=== PATIENT | male | born 1950 | race Caucasian/White ===

== ENCOUNTER 2016-05-14 08:38 | Emergency (ER) | payer MEDICARE, MEDICAID ==
[~2016-05-14] VITALS: Ht 160 cm; Wt 97.7 kg
[~2016-05-14 08:38] MED LIST: ACET-837 PO; ASPI81TA3 PO; ATOR80TA PO; CLOP75TA28 PO; GOODY S HEADACHE PO; ISOS60TA2 PO; LISI-610 PO; METO25TA6 PO; NITR0.4T SL; OMEP20TA86 PO; PANT40TA2 PO; RANO500T3 PO
--- NOTE | 2016-05-14 08:43 | ED.REPORT ---
HPI-General Illness Date of Service May 14, 2016 ED Provider: Rufina Arora MD Nursing Notes Stated Complaint: NOSE BLEED/ON BLOOD THINNERS Allergies: Coded Allergies: oxycodone (Verified Allergy, Severe, 11/29/13) propoxyphene (Verified Allergy, Severe, 11/29/13) Scheduled Aspirin Chew (Aspirin Chew) 81 Mg Tablet 81 MG PO DAILY Atorvastatin (Lipitor) 80 Mg Tablet 80 MG PO DAILY Clopidogrel (Clopidogrel) 75 Mg Tablet 75 MG PO DAILY Gabapentin (Gabapentin) 300 Mg Capsule 300 MG PO TID 1 at bedtime until the daytime sleepiness goes away. increase by 1 tablet per day. Max dose: 1200 mg 3 times a day Isosorbide MN ER (Isosorbide MN ER) 60 Mg Tablet 60 MG PO 0730 Lisinopril (Zestril) 10 Mg Tablet 10 MG PO BID Metoprolol Tartrate (Metoprolol Tartrate) 25 Mg Tablet 12.5 MG PO BID Omeprazole (Omeprazole) 20 Mg Tablet.dr 80 MG PO DAILY Pantoprazole DR (Protonix) 40 Mg Tablet 40 MG PO DAILY Ranolazine ER (Ranexa) 500 Mg Tablet.er 500 MG PO BID Scheduled PRN ([goody's headache ]) 3-5 PACKET PO DAILY PRN PRN For Headache Acetaminophen/Codeine 300-60mg (Tylenol/Codeine #4) 1 Each Tablet 2 TABLET PO BID PRN PRN Pain Nitroglycerin SL (Nitrostat) 0.4 Mg Tab.subl 0.4 MG SL Q5MIN PRN PRN chest pain General Time Seen by MD: 08:40 Past Medical History Past Medical History [place] x4 Cardiac Stent x4 Anxiety Disorder Sarcoidosis sleep apnea Reports: Coronary artery disease, GERD, Hyperlipidemia, Hypertension Past Surgical History Cardiac Catheterization 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 Smoking History Never Smoker Social History Alcohol Use: Denies alcohol use Drug Use: Denies drug use Other Social History: Good social support, , Local resident Ambulatory Status Independent Physical Exam Vital Signs Vital Signs Date Time Temp Pulse Resp B/P Pulse Ox O2 Delivery O2 Flow Rate FiO2 05/14/16 08:49 37.0 78 15 179/88 97 Room Air Interpretation & Diagnostics Lab Results Interpretation Result Diagram: 05/14/16 1033 Test 05/14/16 10:33 White Blood Count 9.7th/mm3 (3.8-10.1) Red Blood Count 4.85mil/mm3 (4.40-5.80) Hemoglobin 13.4g/dL (13.8-17.2) Hematocrit 41.8% (41.0-50.0) Mean Corpuscular Volume 86.2fL (81-100) Mean Corpuscular Hemoglobin 27.6pg (27.0-35.0) Mean Corpuscular Hemoglobin Concent 32.1% (32.0-37.0) Red Cell Distribution Width 14.0% (12.3-15.4) Platelet Count 338bil/L (150-400) Neutrophils (%) (Auto) 71.9% (40-74) Lymphocytes (%) (Auto) 14.4% (14-46) Monocytes (%) (Auto) 9.1% (4-12) Eosinophils (%) (Auto) 3.5% (0-5) Basophils (%) (Auto) 0.3% (0-3) Discharge & Departure Referrals: Hyacinth Fletcher MD (PCP) Rufina Arora MD May 14, 2016 08:43 Maribel Duncan May 14, 2016 11:35
[2016-05-14 08:49] VITALS: BP 179/88; RESP 15; O2SAT 97
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
[2016-05-14] MEDS ORDERED: HYDROmorphone 1 mg/mL Inj IM ONE ×2 (10:35→11:35)
[2016-05-14 10:42] LABS: BASOPHILS % (AUTO) 0.3 % (0-3); EOSINOPHILS % (AUTO) 3.5 % (0-5); MONOCYTES % (AUTO) 9.1 % (4-12); Mean Corpuscular Hemoglobin 27.6 pg (27.0-35.0); Mean Corpuscular Volume 86.2 fL (81-100); NEUTROPHILS % (AUTO) 71.9 % (40-74); Platelet Count 338 bil/L (150-400)
[2016-05-14 11:30] VITALS: BP 146/86; PULSE 84; RESP 14; O2SAT 97
[2016-05-14] MEDS ORDERED: GABA-502 PO (11:34)
[2016-05-14 11:54] VITALS: BP 146/86; PULSE 84; RESP 14; O2SAT 97
== END 2016-05-14 11:55 | disposition home or self-care (01) ==
LOC: SED 08:38
DX: R04.0 Epistaxis (principal); I25.10 Atherosclerotic heart disease of native coronary artery without angina pectoris; I10 Essential (primary) hypertension; E78.5 Hyperlipidemia, unspecified; K21.9 Gastro-esophageal reflux disease without esophagitis; Z95.5 Presence of coronary angioplasty implant and graft; Z79.01 Long term (current) use of anticoagulants; Z87.891 Personal history of nicotine dependence; Z98.890 Other specified postprocedural states; Z88.5 Allergy status to narcotic agent; Z88.8 Allergy status to other drugs, medicaments and biological substances; Z79.82 Long term (current) use of aspirin
CPT/HCPCS: 30901; 36415; 85025; 99284; J1170

== ENCOUNTER 2016-11-12 19:16 | Inpatient (IN) | payer MEDICARE, MEDICAID ==
[~2016-11-12] VITALS: Ht 160 cm; Wt 90.1 kg
[~2016-11-12 19:16] MED LIST changes: +GABA-502 PO
[2016-11-12 19:31] VITALS: BP 149/86; PULSE 77; RESP 16; O2SAT 99
[2016-11-12 20:35] LABS: BASOPHILS % (AUTO) 0.3 % (0-3); EOSINOPHILS % (AUTO) 1.9 % (0-5); MONOCYTES % (AUTO) 7.8 % (4-12); Mean Corpuscular Hemoglobin 27.2 pg (27.0-35.0); Mean Corpuscular Volume 85.7 fL (81-100); NEUTROPHILS % (AUTO) 58.6 % (40-74); Platelet Count 323 bil/L (150-400)
[2016-11-12 20:54] LABS: INR 0.95 ratio
[2016-11-12 22:11] VITALS: BP 132/65; PULSE 75; O2SAT 99
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
[2016-11-12] MEDS ORDERED: Pantoprazole Inj 80 MG, Pharmacy To Mix 1 EA in 0.9% Sodium Chloride 80 ML IV ONE ×2 (22:45)
[2016-11-12] MEDS ORDERED: HYDROmorphone 1 mg/mL Inj IVPUSH ONE (22:45)
[2016-11-12] MEDS ORDERED: Pantoprazole 4 mg/mL 10 mL Inj IVPUSH ONE (22:45)
[2016-11-12] MEDS ORDERED: HYDROmorphone 0.5 mg/0.5 mL iSecure Syringe IVPUSH ONE (23:25)
[2016-11-12] MEDS ORDERED: Ondansetron 2 mg/mL 2 mL Inj IVPUSH PRN (23:45)
[2016-11-12] MEDS ORDERED: Polyethylene Glycol (PEG) 17 Gm Powder PO PRN (23:45)
[2016-11-12] MEDS ORDERED: Alum-Mag Hydrox-Simeth 30 mL Suspension PO PRN (23:45)
--- NOTE | 2016-11-12 23:52 | PCM.HPMED ---
Subjective Date of Service Nov 12, 2016 Primary Provider: Admitting Physician: Primary Care Physician: Hyacinth Fletcher MD Attending Physician: Admit Status: From the Emergency Department, Full Admit, Remote Telemetry Chief Complaint: Black stools History of Present Illness: Graham Ruggiero is a 66 year old male with Coronary artery disease, Hypertension and hyperlipidemia presenting to [facility] emergency department complaining of black stool onset 2 days ago. Patient first noticed the black colored stools last Saturday. Associated symptoms include nausea without any vomiting, back and intermittent "gurgling" abdominal pain (which may be associated with a recent groin injury), and intermittent lightheadedness. He denies any hematemesis but states " I can taste the blood". He has taken significant amount of Ibuprofen due to chronic pain issues. He does have GERD but ran out of Protonix and Omeprazole for the last week. He denies any previous history of black stools or internal bleeding. He has cardiac heart disease but no anginal equivalent pain. Case discussed with Dr Tirado, he spoke to Dr Ellis. Vitals stable. Protonix drip started and will be admitted Review of Systems: Pertinent positives as noted in HPI. All other systems were reviewed and are negative Allergies Coded Allergies: oxycodone (Verified Allergy, Severe, 11/29/13) propoxyphene (Verified Allergy, Severe, 11/29/13) Home Medications From [facility], not yet confirmed Graham Ruggiero [id number] 04/23/2016 03:00 PM 03/12 acetaminophen 300 mg-codeine 60 mg tablet take 1 tablet by oral route every 6 hours as needed clopidogrel 75 mg tablet take 1 tablet by oral route every day ibuprofen 200 mg tablet take as needed as directed by physician for pain/ inflammation. isosorbide mononitrate ER 60 mg tablet,extended release 24 hr take 1 tablet by oral route every day in the morning lisinopril 5 mg tablet take 1 tablet by oral route 2 times every day metoprolol tartrate 50 mg tablet take 1 Tablet by oral route 2 times every day with meals Nitrostat 0.[address] 1 tablet by sublingual route at the 1st sign of attack; may repeat every 5 min until relief; if pain persists after 3 tablets in 15 min, prompt medical attention is recommended nortriptyline 25 mg capsule take 1 capsule by oral route 3 times every day omeprazole 20 mg capsule,delayed release take 1 capsule by oral route every day 30 minutes to 1 hour before a meal Protonix 40 mg tablet,delayed release take 1 tablet by oral route 2 times every day rosuvastatin 40 mg tablet take 1 tablet by oral route every day PMH Coronary artery disease Hyperlipidemia Hypertension Chronic fatigue Depression GERD Sarcoid Lung disease Spinal stenosis of lumbar spine . Surgical History Leg surgery Cardiac cath, bare metal stent to proximal right posterolateral lesion Ankle and Knee surgery Family History Father age 60, had Coronary artery disease and Stroke Mother 80, Diabetic Sister has Diabetes Social History Hx Alcohol Use: Yes (rarely once a month maybe I will have a beer) Hx Substance Use: No Hx Tobacco Use: Yes Smoking Status: Former Smoker Living Arrangement: with Family Exam Vital Signs Vital Sign - Last Date Time Temp Pulse Resp B/P Pulse Ox O2 Delivery O2 Flow Rate FiO2 11/12/16 22:11 36.9 75 132/65 99 Room Air 11/12/16 19:31 16 Exam General: Alert, Oriented X3, Cooperative, No acute Distress Eyes: PERRLA, Scleral Anicteric Mouth: Mouth Normal, Mucous Membranes Moist/[place] Neck: Supple, no Thyromegaly, trachea central. Chest & Lungs: Clear to auscultation & percussion, No adventitious breath sounds, no crackles, no wheeze Cardiovascular: Normal S1, Normal S2, No Murmurs/Rubs/Gallops, Regular Rate/ Rhythm, (No JVD, no peripheral edema) Pulses: Radial (present and equal), Dorsalis Pedi (present and equal) Abdomen: Soft, Non-tender, Non-distended, Normoactive bowel tones. Musculoskeletal: Unremarkable. Normal range of motion, no swollen or erythematous joints Extremities: No edema, no cyanosis, no clubbing. Skin: No rashes. Warm and dry, no erythematous areas Neurological: Grossly neurologically intact, Normal Speech, Sensation Intact Lymphatic: Lymph nodes Cervical and Axillary not palpable Lab and Diagnostics Labs Laboratory Tests Test 11/12/16 20:22 11/12/16 22:19 White Blood Count 10.1th/mm3 (3.8-10.1) Red Blood Count 3.57mil/mm3 (4.40-5.80) Hemoglobin 9.7g/dL (13.8-17.2) Hematocrit 30.6% (41.0-50.0) Mean Corpuscular Volume 85.7fL (81-100) Mean Corpuscular Hemoglobin 27.2pg (27.0-35.0) Mean Corpuscular Hemoglobin Concent 31.7% (32.0-37.0) Red Cell Distribution Width 16.0% (12.3-15.4) Platelet Count 323bil/L (150-400) Neutrophils (%) (Auto) 58.6% (40-74) Lymphocytes (%) (Auto) 30.9% (14-46) Monocytes (%) (Auto) 7.8% (4-12) Eosinophils (%) (Auto) 1.9% (0-5) Basophils (%) (Auto) 0.3% (0-3) Prothrombin Time 10.1sec (8.1-12.5) Prothromb Time International Ratio 0.95ratio Sodium Level 140mEq/L (134-144) Potassium Level 4.4mEq/L (3.5-5.2) Chloride Level 102mEq/L (97-108) Carbon Dioxide Level 23mmol/L (18-29) Blood Urea Nitrogen 36mg/dL (8-27) Creatinine 1.05mg/dL (0.76-1.27) Estimat Glomerular Filtration Rate 75mL/min (>59) Glucose Level 121mg/dL (60-99) Calcium Level 9.1mg/dL (8.5-10.1) Total Bilirubin 0.3mg/dL (0.0-1.2) Aspartate Amino Transf (AST/SGOT) 16U/L (0-50) Alanine Aminotransferase (ALT/SGPT) 14U/L (0-44) Alkaline Phosphatase 83U/L (25-160) Total Protein 6.8g/dL (6.4-8.4) Albumin 4.0g/dL (3.4-5.0) Hold Dao Top Tube Received (Received) Hold Urine Received (Received) Result Diagram: 11/12/16202111/12/162021 Assessment & Plan Graham Ruggiero is a 66 year old male with Coronary artery disease, Hypertension and hyperlipidemia presenting to [facility] emergency department complaining of black stool 1. Acute Upper Gastrointestinal bleeding. Present on admission Likely Erosive gastritis. Previous history of GERD but patient ran out of his Protonix and Omeprazole. Patient also taking Ibuprofen for pain and likely the cause of his bleeding. Other causes includes Esophageal varices, Ivy-Anton syndrome or Vascular ectasias are all less likely - nothing by mouth and IV fluids resuscitations - monitor Hgb every 6 hours, transfusion trigger will be symptomatic and Hgb < 8 - Dr Ellis was notified for consultation, possible Upper endoscopy - continue Protonix drip - holding Plavix and NSAIDS (Educated patient concerning NSAIDS and his currently bleeding) 2 Coronary artery disease, Chronic Presumed stable with no recent hospitalization. - holding antiplatelet therapy for now - continue Isosorbide, beta blockers, as need Nitro 3 Hypertension, chronic Presumed stable - continue Losartan, Metoprolol 4 Hyperlipidemia, Chronic - continue Rosuvastatin or equivalent in the hospital - Acetaminophen as needed for mild pain/fever/headache - Bowel regimen as needed - Antiemetic as needed Patient admitted under inpatient status with expected length of stay > 2 midnights for severity of present symptoms, complexities of treatment plan and risk for adverse event . Resuscitation Status: CPR: Attempt Resuscitation Ibrahima Hancock MD Nov 12, 2016 23:52
[2016-11-13] VITALS (12 sets, daily range): BP systolic 117–189; BP diastolic 66–97; PULSE 70–88; RESP 14–20; O2SAT 96–100
[2016-11-13] MEDS: 0.9% Sodium Chloride 1,000 ML IV SCH ×3 (03:27→19:43)
--- NOTE | 2016-11-13 04:29 | NUR ---
Admit Patient admitted to unit at ~0230 from ED with Protonix drip running. Self transferred to bed SBA. Pain increased in back and groin while in ED, subsided while doing admission workup. Patient A & O x3, VSS. Med rec started but not complete as patient did not know all of medications, will call to complete. Patient oriented to room and call ligtht. Patient to be NPO after midnight for Endoscopy on 11/13/16. Will continue to monitor hourly.
[2016-11-13] MEDS ORDERED: LOSA50TA37 PO (09:12)
[2016-11-13] MEDS ORDERED: METO50TA3 PO (09:12)
[2016-11-13] MEDS ORDERED: ROSU40TA20 PO (09:12)
--- NOTE | 2016-11-13 09:45 | NUR ---
MED REC Completed by patient interview and medication containers. Asked to bring meds home with her. Hospitalist informed of updated med rec.
[2016-11-13] MEDS: Pantoprazole Inj 80 MG, Pharmacy To Mix 1 EA in 0.9% Sodium Chloride 80 ML IV SCH ×4 (10:43→23:12)
[2016-11-13] MEDS ORDERED: fentaNYL-PF 50 mCg/mL 2 mL Inj ONE (11:17)
[2016-11-13] MEDS ORDERED: Propofol 10,000 mCg/mL 20 mL Inj ONE (11:17)
[2016-11-13] MEDS ORDERED: HYDROmorphone 0.5 mg/0.5 mL iSecure Syringe IVPUSH PRN (11:40)
--- NOTE | 2016-11-13 15:14 | NUR ---
Social Work: Initial Assessment/Multidisciplinary Rounds D: EMR reviewed. Please see Initial Assessment linked to this note for more information. Pt is a 66 year old male admitted IN for GI Bleed per H&P. Pt's insurance is Medicare and [facility]. PCP is Hyacinth Fletcher MD. Pt discussed in multidisciplinary rounds, pt to receive scope today. GI is consulted. SW met with pt at bedside to conduct initial assessment. Pt was alert and oriented x3. SW explained role and wrote phone number on white board. SW provided [facility] Discharge Planning Checklist and encouraged pt to contact SW for any discharge planning questions. Pt lives at home with spouse [place]. Pt is independent with all ADLs at baseline. Pt uses no DME at baseline. Pt drives. Pt has no HH or SNF history. Pt has no LTC or VA benefits. Pt has no DPOA on file, pt to ask if this has been completed in the past. Pt is likely to d/c home with spouse to transport via POV. SW will continue to follow. A: Pt who is independent at baseline and has the capacity for self-care. P: Pt anticipated to discharge home with spouse to transport via POV. No SW needs identified, no MD orders received at this time. SW will continue to follow for needs until time of discharge. LYNNE Vega Addendum: 11/13/16 at 1518 by FAISAL ESCOBAR SS Amended: Links added.
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
--- NOTE | 2016-11-13 16:31 | NUR ---
TRANSFER OFF FLOOR Patient was saline locked, removed telemetry. Offered to use bathroom. Patient self transferred to endoscopy bed and was taken down for EGD.
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
[2016-11-13] MEDS ORDERED: Lactated Ringer's 1,000 ML IV ONE (17:21)
--- NOTE | 2016-11-13 17:49 | PCM.ANEP1 ---
Post Anesthesia PACU Phase 1 Assessment Vital Signs See RN record Vital Signs Date Time Temp Pulse Resp B/P Pulse Ox O2 Delivery O2 Flow Rate FiO2 11/13/16 16:43 37.0 81 16 155/89 98 Room Air 11/13/16 15:35 37.2 75 19 169/91 99 Room Air 11/13/16 10:30 36.7 76 18 136/81 98 Room Air Anesthetic Administered: GA Level of Alertness: Awake, talking HAM's with Equal Strength: No Pain: Yes (RN aware of pain and vitals) Pain Scale Score: 5 Nausea or Vomiting: No CV Function & Hydration Stable: Yes Airway Device: NONE Lungs: Clear to Auscultation Dermatome Level: Full Sensation Summary UNEVENTFUL GA PACU Phase 2 Assessment Complications: No Follow up Care: No Patient Instructions Provided: N/A Josue Calderon MD Nov 13, 2016 17:49
[2016-11-13] MEDS ORDERED: MetoCLOpramide 5 mg/mL 2 mL Inj IVPUSH PRN (17:50)
[2016-11-13] MEDS ORDERED: Lactated Ringer's 1,000 ML IV SCH (17:50)
[2016-11-13] MEDS ORDERED: Ondansetron 2 mg/mL 2 mL Inj IVPUSH PRN (17:50)
--- NOTE | 2016-11-13 17:58 | PCM.ENDEGD ---
EGD Date of Service: Nov 13, 2016 Physician Placido Ellis MD Pre Procedure Diagnosis: Melena and anemia Post Procedure Dx & Findings: Gastric ulcer erosive gastropathy and duodenal ulcers Procedure Esophagogastroduodenoscopy PROCEDURE IN DETAIL: After proper sedation, Olympus video endoscope was inserted into patient's mouth and esophagus was successfully intubated. Scope introduced esophagus. Esophagus showed normal shiny whitish mucosa consistent with squamous cell component. Z line was intact at 40 cm from the incisors. Scope further advanced to the stomach. The stomach body showed normal rugae folds however in the rugae folds, there were several edematous reddish mucosa with superficial erosions. The antrum showed superficial erosive gastropathy as well as 2 clean base ulcers. Biopsies are obtained at those 2 sites. Cardia fundus body antrum pylorus were all visualized. Retroflexion was done. Stomach was easily inflated and deflatable using air. Scope further advanced to the distal duodenum. The duodenal bulb and the first pass of duodenum showed 2 superficial clean-based ulcer one linear 1 circular. Size varied between 8 mm to 1.5 cm. Biopsies were done at both sites. Otherwise, the rest of the duodenum revealed normal villous structures with normal appearing folds without any mass ulcer erosion. Impression Erosive gastropathy and Gastric ulcers biopsies obtained. Duodenal ulcers biopsies obtained. Recommendation Starting tomorrow morning, will switch to oral Protonix 40 mg twice a day for one month and then 20 mg once a day as long as patient is on aspirin and/or Plavix. Advanced diet as tolerated. Risk benefit for aspirin and Plavix should be assessed. However if patient needs aspirin and Plavix, continue aspirin and Plavix per cardiology. However there is increased risk of bleeding under the circumstances. Presedation Assessment Risks and Benefits Informed consent was obtained from the patient after all risks and benefits including but not limited to drug reaction, infection, pain, bleeding, perforation, as well as alternatives were discussed. Patient monitoring Continuous pulse oximetry, cardiac monitoring, blood pressure monitoring, IV access, and oxygen at 2L per nasal cannula. Complications There were no periprocedural complications identified. Post Procedure Plan Post Procedure Recommendations 1. Restrict activities today. 2. Resume normal activities in the morning. 3. Resume medications. 4. GERD behavioral modification: - Avoid fatty, acidic, spicy, large meals - Do not lie down after meals - Do not eat or drink anything for at least 2 1/2 hours before going to bed at night - Discontinue tobacco and alcohol - Decrease or avoid caffeine - Avoid chocolate and mints - Decrease weight - Avoid aspirin and non steroidal anti-inflammatory agents (NSAID) such as Aleve, Advil, Mobic, Naproxen, Ibuprofen, etc 5. Add proton pump inhibitor. Take 30 minutes before 1st meal of the day. 6. Patient informed of normal post procedure side effects as bloating, drowsiness, blood streaking in the stool 7. If gastric biopsy reveal H.pylori, continue with appropriate treatment 8. If small bowel biopsy reveals celiac, continue with appropriate treatment 9. Please don't hesitate to call me with any questions Placido Ellis MD Nov 13, 2016 17:58
[2016-11-13] MEDS: Lidocaine Topical 5% Patch TOPICAL SCH (18:23)
--- NOTE | 2016-11-13 18:35 | NUR ---
RETURN FROM ENDO Patient returned from endoscopy awake and alert. Ambulating around room independently prior to restarting IV fluids and protonix gtt. Placed back on telemetry. Lidoderm patch placed on lower back for pain mgmt. No nausea. Ordered dinner for tonight.
[2016-11-13] MEDS: Codeine-APAP 30-300 mg Tablet PO PRN (19:29)
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
[2016-11-14 00:10] VITALS: BP 121/72; PULSE 60; RESP 16; O2SAT 98
--- NOTE | 2016-11-14 04:13 | NUR ---
Pain Patient complains of chronic back pain that wasn't relieved by morphine or Dilaudid administered on day shift. Gave Tylenol 3 and heat pack, back pain well managed after administration. Patient currently in bed with eyes closed, chest rising and falling. Will continue monitoring hourly.
[2016-11-14 05:37] VITALS: BP 130/74; PULSE 69; RESP 16; O2SAT 98
[2016-11-14] MEDS: 0.9% Sodium Chloride 1,000 ML IV SCH (05:43)
[2016-11-14] MEDS ORDERED: Isosorbide Mononitrate 60 mg ER24 Tablet PO SCH (07:30)
--- NOTE | 2016-11-14 08:07 | PCM.DIMED ---
Discharge Instructions Date of Service Nov 14, 2016 Dates of Hospitalization Nov 13, 2016 at 00:40 Discharge Diagnosis Discharge Diagnosis Upper endoscopy revealed erosive gastropathy and gastric ulcers which were biopsied along with duodenal ulcers which were biopsies and those are pending at the time of this dictation Diet Discharge Diet: Heart Healthy Activity Discharge Activity: Other (progresses tolerated) Call your provider Call your provider for: Fever or Chills, Shortness of breath, Bleeding, Chest pain, Vomitting, Excessive diarrhea, Weakness (unilateral) Patient Instructions Patient Instructions Avoid taking nonsteroidal anti-inflammatory medications as this most likely lead to gastrointestinal ulcers. Also follow reflux precautions:-Avoid fatty, ascitic, spicy large meals -Do not lie down after meals -Do not eat or drink anything for at least one half hours before going to bed at night -Discontinue tobacco and alcohol -Decrease or avoid caffeine -Avoid chocolate and Mentz -Lose weight -Avoid aspirin and nonsteroidal anti-inflammatory agents such as Aleve, Advil, Mobic, naproxen, ibuprofen etc. Continue to take her proton pump inhibitor which is Protonix as prescribed Follow-up Provider: Hyacinth Fletcher MD Follow-up with PCP in: Other (4-5 days, sooner if problems) Pam Olivo MD Nov 14, 2016 08:07
[2016-11-14] MEDS ORDERED: LIDO700A10 TOPICAL (08:09)
[2016-11-14] MEDS ORDERED: PANT40TA3 PO (08:09)
--- NOTE | 2016-11-14 08:14 | PCM.DC.MED ---
Discharge Summary Date of Service Nov 14, 2016 Dates of Hospitalization Date of Hospital Admission Nov 13, 2016 at 00:40 Date of Discharge: Nov 14, 2016 Providers: Admitting Physician: Ibrahima Hancock MD Primary Care Physician: Hyacinth Fletcher MD Attending Physician: Pam Olivo MD Diagnosis at Time of Discharge Diagnosis at Time of Discharge Upper endoscopy revealed erosive gastropathy and gastric ulcers which were biopsied along with duodenal ulcers which were biopsies and those are pending at the time of this dictation Consultations Gastroenterology Procedures Invasive Procedures Pre Procedure Diagnosis: Melena and anemia Post Procedure Dx & Findings: Gastric ulcer erosive gastropathy and duodenal ulcers Procedure Esophagogastroduodenoscopy PROCEDURE IN DETAIL: After proper sedation, Olympus video endoscope was inserted into patient's mouth and esophagus was successfully intubated. Scope introduced esophagus. Esophagus showed normal shiny whitish mucosa consistent with squamous cell component. Z line was intact at 40 cm from the incisors. Scope further advanced to the stomach. The stomach body showed normal rugae folds however in the rugae folds, there were several edematous reddish mucosa with superficial erosions. The antrum showed superficial erosive gastropathy as well as 2 clean base ulcers. Biopsies are obtained at those 2 sites. Cardia fundus body antrum pylorus were all visualized. Retroflexion was done. Stomach was easily inflated and deflatable using air. Scope further advanced to the distal duodenum. The duodenal bulb and the first pass of duodenum showed 2 superficial clean-based ulcer one linear 1 circular. Size varied between 8 mm to 1.5 cm. Biopsies were done at both sites. Otherwise, the rest of the duodenum revealed normal villous structures with normal appearing folds without any mass ulcer erosion. Impression Erosive gastropathy and Gastric ulcers biopsies obtained. Duodenal ulcers biopsies obtained. Recommendation Starting tomorrow morning, will switch to oral Protonix 40 mg twice a day for one month and then 20 mg once a day as long as patient is on aspirin and/or Plavix. Advanced diet as tolerated. Risk benefit for aspirin and Plavix should be assessed. However if patient needs aspirin and Plavix, continue aspirin and Plavix per cardiology. However there is increased risk of bleeding under the circumstances. Presedation Assessment Risks and Benefits Informed consent was obtained from the patient after all risks and benefits including but not limited to drug reaction, infection, pain, bleeding, perforation, as well as alternatives were discussed. Patient monitoring Continuous pulse oximetry, cardiac monitoring, blood pressure monitoring, IV access, and oxygen at 2L per nasal cannula. Complications There were no periprocedural complications identified. Post Procedure Plan Post Procedure Recommendations 1. Restrict activities today. 2. Resume normal activities in the morning. 3. Resume medications. 4. GERD behavioral modification: - Avoid fatty, acidic, spicy, large meals - Do not lie down after meals - Do not eat or drink anything for at least 2 1/2 hours before going to bed at night - Discontinue tobacco and alcohol - Decrease or avoid caffeine - Avoid chocolate and mints - Decrease weight - Avoid aspirin and non steroidal anti-inflammatory agents (NSAID) such as Aleve, Advil, Mobic, Naproxen, Ibuprofen, etc 5. Add proton pump inhibitor. Take 30 minutes before 1st meal of the day. 6. Patient informed of normal post procedure side effects as bloating, drowsiness, blood streaking in the stool 7. If gastric biopsy reveal H.pylori, continue with appropriate treatment 8. If small bowel biopsy reveals celiac, continue with appropriate treatment 9. Please don't hesitate to call me with any questions Placido Ellis MD Nov 13, 2016 17:58 Brief History GASTROENTEROLOGY CONSULT Attending Physician: Placido Ellis MD Resident Physician: Anabel Saucedo DO Graham Ruggiero is a 66 year old male with a history of coronary artery disease , prior GA with cardiac stents x4 (currently on plavix), HTN, HLD, GERD, and chronic pain with daily NSAID who presented to the ED with the complaint of black stool for the past two days. He states that he was in his usual state of health when he noted black stool on 11/10 associated with nausea but no vomiting. He states that prior to that he had been feeling lightheaded with increased fatigue for approximately the past week. He denies hematemesis but notes that he has tasted blood in the back of his throat. Of note he states that he has been taking both omeprazole and pantoprazole for reflux and ran out of the pantoprazole last week. Additionally he states that he has been taking ibuprofen daily to help with his chronic back and groin pain. He reports significant nerve pain in his scrotum following an accident at work. He states that he underwent a denervation surgery without relief. Of note he also states that he has been drinking alcohol to help with pain control. He states that he does not drink alcohol daily and does not drink to the point of intoxication but notes 1-2 beers as well as a 1-2 shots of hard alcohol several times per week. He does not drink caffeine and yonis family history of colon cancer. He states this is the first time he has ever had black stool and denies fever, chills, shortness of breath, chest pain, abdominal pain, and hematemesis. In the ED, he was afebrile with a BP of 149/86 with a heart rate of 77. Oxygen sats were 99% on room air with a RR of 16. Labs significant for a Hb of 9.7 and Hct of 30.6, plts 323, BUN 36, creatinine 1.05, and a serum glucose of 121. Electrolytes wnl. Stool was guiaiac positive and melanotic stool was noted. ECG showed sinus rhythm with a rate of 77, no acute ischemic changes and old inferior infarct. He was started on a PPI and admitted for further evaluation and management of upper GI bleed. Hospital Course Graham Ruggiero is a 66 year old male with Coronary artery disease, Hypertension and hyperlipidemia presenting to [facility] emergency department complaining of black stool #Acute Upper Gastrointestinal bleeding. Present on admission Likely Erosive gastritis. Previous history of GERD but patient ran out of his Protonix and Omeprazole. Patient also taking Ibuprofen for pain and likely the cause of his bleeding. Other causes includes Esophageal varices, Ivy-Anton syndrome or Vascular ectasias are all less likely - nothing by mouth and IV fluids resuscitations - monitor Hgb every 6 hours, transfusion trigger will be symptomatic and Hgb < 8 - continue Protonix drip and patient was switched to by mouth Protonix 40 mg by mouth twice a day day prior to discharge -We will go ahead and restart his ASA and Plavix and will need to avoid nonsteroidal anti-inflammatories -Serial hematocrits have been stable prior to discharge -He tolerated dinner yesterday which was a general diet #Coronary artery disease, Chronic presumed stable Presumed stable with no recent hospitalization. - continue Isosorbide, beta blockers, as need Nitro -Restart ASA and Plavix #Hypertension, chronic Presumed stable - continue Losartan, Metoprolol home medications #Hyperlipidemia, Chronic presumed stable - continue Rosuvastatin or equivalent in the hospital - Acetaminophen as needed for mild pain/fever/headache - Bowel regimen as needed - Antiemetic as needed -Patient will also be started on the light at term patch as an outpatient which he was started on as an inpatient for back pain Please note the patient improved faster than expected and hence was discharged to home sooner than anticipated. Exam Vital Signs (Last) Date Time Temp Pulse Resp B/P Pulse Ox O2 Delivery O2 Flow Rate FiO2 11/14/16 05:37 36.6 69 16 130/74 98 Room Air Test 11/12/16 20:22 11/12/16 22:19 11/14/16 06:20 White Blood Count 10.1th/mm3 (3.8-10.1) Red Blood Count 3.57mil/mm3 (4.40-5.80) Mean Corpuscular Volume 85.7fL (81-100) Mean Corpuscular Hemoglobin 27.2pg (27.0-35.0) Mean Corpuscular Hemoglobin Concent 31.7% (32.0-37.0) Red Cell Distribution Width 16.0% (12.3-15.4) Platelet Count 323bil/L (150-400) Neutrophils (%) (Auto) 58.6% (40-74) Lymphocytes (%) (Auto) 30.9% (14-46) Monocytes (%) (Auto) 7.8% (4-12) Eosinophils (%) (Auto) 1.9% (0-5) Basophils (%) (Auto) 0.3% (0-3) Prothrombin Time 10.1sec (8.1-12.5) Prothromb Time International Ratio 0.95ratio Sodium Level 140mEq/L (134-144) Potassium Level 4.4mEq/L (3.5-5.2) Chloride Level 102mEq/L (97-108) Carbon Dioxide Level 23mmol/L (18-29) Blood Urea Nitrogen 36mg/dL (8-27) Creatinine 1.05mg/dL (0.76-1.27) Estimat Glomerular Filtration Rate 75mL/min (>59) Glucose Level 121mg/dL (60-99) Calcium Level 9.1mg/dL (8.5-10.1) Total Bilirubin 0.3mg/dL (0.0-1.2) Aspartate Amino Transf (AST/SGOT) 16U/L (0-50) Alanine Aminotransferase (ALT/SGPT) 14U/L (0-44) Alkaline Phosphatase 83U/L (25-160) Total Protein 6.8g/dL (6.4-8.4) Albumin 4.0g/dL (3.4-5.0) Hold Dao Top Tube Received (Received) Hold Urine Received (Received) Hemoglobin 9.2g/dL (13.8-17.2) Hematocrit 29.0% (41.0-50.0) Discharge Medications Discharge Medications Aspirin (Aspirin) 81 Mg Tablet 81 MG PO DAILY Prescribed by: PAM OLIVO MD Clopidogrel (Clopidogrel) 75 Mg Tablet 75 MG PO DAILY Prescribed by: SATURNINO KEITH MD Isosorbide MN ER (Isosorbide MN ER) 60 Mg Tablet 60 MG PO 0730 Prescribed by: SATURNINO KEITH MD Lidocaine (Lidoderm) 700 Mg Adh..patch 1 PATCH TOPICAL DAILY Prescribed by: PAM OLIVO MD Losartan Potassium (Losartan Potassium) 50 Mg Tablet 50 MG PO DAILY (Reported) Metoprolol Tartrate (Metoprolol Tartrate) 50 Mg Tablet 50 MG PO BID (Reported) Pantoprazole DR (Pantoprazole DR) 40 Mg Tablet.dr 40 MG PO BIDAC Prescribed by: APM OLIVO MD Rosuvastatin Calcium (Rosuvastatin Calcium) 40 Mg Tablet 40 MG PO DAILY ( Reported) As needed Acetaminophen/Codeine 300-60mg (Tylenol/Codeine #4) 1 Each Tablet 2 TABLET PO BID PRN PRN Pain (Reported) Nitroglycerin SL (Nitrostat) 0.4 Mg Tab.subl 0.4 MG SL Q5MIN PRN PRN chest pain (Reported) Followup Plan Disposition: Home Discharge Diet: Heart Healthy Discharge Activity: Other (progresses tolerated) Patient Instructions Avoid taking nonsteroidal anti-inflammatory medications as this most likely lead to gastrointestinal ulcers. Also follow reflux precautions:-Avoid fatty, ascitic, spicy large meals -Do not lie down after meals -Do not eat or drink anything for at least one half hours before going to bed at night -Discontinue tobacco and alcohol -Decrease or avoid caffeine -Avoid chocolate and Mentz -Lose weight -Avoid aspirin and nonsteroidal anti-inflammatory agents such as Aleve, Advil, Mobic, naproxen, ibuprofen etc. Continue to take her proton pump inhibitor which is Protonix as prescribed Follow-up Provider: Hyacinth Fletcher MD Follow-up with PCP in: Other (4-5 days, sooner if problems) Time spent 60 minutes copies to: Hyacinth Fletcher MD, Cheryl A MD Nov 14, 2016 08:14
[2016-11-14] MEDS ORDERED: ASPI-973 PO (08:15)
[2016-11-14] MEDS ORDERED: Pantoprazole 4 mg/mL 10 mL Inj IVPUSH SCH (08:30)
--- NOTE | 2016-11-14 08:33 | NUR ---
Social Work- Discharge Data: EMR reviewed. Pt is on day 1 of hospitalization for GI Bleed. Discharge orders are active. No SW orders placed at this time. Pt's to transport home via POV. Pt is independent at baseline. No discharge needs identified. Assessment: Pt who is independent at baseline. Plan: Pt to d/c home with to transport via POV. No discharge needs identified. LYNNE Vega
[2016-11-14 08:52] VITALS: BP 141/80; PULSE 92; RESP 19; O2SAT 99
[2016-11-14] MEDS: Lidocaine Topical 5% Patch TOPICAL SCH (09:05)
[2016-11-14] MEDS: Codeine-APAP 30-300 mg Tablet PO PRN (09:28)
--- NOTE | 2016-11-14 09:28 | PCM.PNMED ---
Subjective Date of Service Nov 14, 2016 Subjective GASTROENTEROLOGY CONSULT Attending Physician: Placido Ellis MD Resident Physician: Anabel Saucedo DO Exam Vital Signs Vital Sign - Last Date Time Temp Pulse Resp B/P Pulse Ox O2 Delivery O2 Flow Rate FiO2 11/14/16 08:52 36.3 92 19 141/80 99 Room Air Intake and Output 11/13/16 11/13/16 11/14/16 Cumulative From/Thru 15:00 23:00 07:00 11/12/16 19:31 - 11/14/16 05:17 Intake Total 1456 ml 1247 ml 3068 ml Output Total 670 ml 550 ml 1470 ml Balance 786 ml 697 ml 1598 ml Intake Oral 0 ml 600 ml 600 ml IV Total 1056 ml 647 ml 2068 ml Platelets 400 ml 400 ml Output Urine Total 670 ml 550 ml 1470 ml # Voids 1 # Bowel Movements 0 0 0 IVs and Medications Medications Reviewed: Medications were reviewed in detail Lab and Diagnostics Laboratory Tests Test 11/13/16 15:45 11/14/16 06:20 Hemoglobin 9.8g/dL (13.8-17.2) 9.2g/dL (13.8-17.2) Hematocrit 31.2% (41.0-50.0) 29.0% (41.0-50.0) Result Diagram: 11/14/1661911/12/162021 Additional Diagnostics 11/13/16 EGD PROCEDURE IN DETAIL: After proper sedation, Olympus video endoscope was inserted into patient's mouth and esophagus was successfully intubated. Scope introduced esophagus. Esophagus showed normal shiny whitish mucosa consistent with squamous cell component. Z line was intact at 40 cm from the incisors. Scope further advanced to the stomach. The stomach body showed normal rugae folds however in the rugae folds, there were several edematous reddish mucosa with superficial erosions. The antrum showed superficial erosive gastropathy as well as 2 clean base ulcers. Biopsies are obtained at those 2 sites. Cardia fundus body antrum pylorus were all visualized. Retroflexion was done. Stomach was easily inflated and deflatable using air. Scope further advanced to the distal duodenum. The duodenal bulb and the first pass of duodenum showed 2 superficial clean-based ulcer one linear 1 circular. Size varied between 8 mm to 1.5 cm. Biopsies were done at both sites. Otherwise, the rest of the duodenum revealed normal villous structures with normal appearing folds without any mass ulcer erosion. Impression Erosive gastropathy and Gastric ulcers biopsies obtained. Duodenal ulcers biopsies obtained. Recommendation Starting tomorrow morning, will switch to oral Protonix 40 mg twice a day for one month and then 20 mg once a day as long as patient is on aspirin and/or Plavix. Advanced diet as tolerated. Risk benefit for aspirin and Plavix should be assessed. However if patient needs aspirin and Plavix, continue aspirin and Plavix per cardiology. However there is increased risk of bleeding under the circumstances. Placido Ellis MD . Assessment & Plan VTE Mechanical Devices: Intermittant Pneumatic CD Resuscitation Status: CPR: Attempt Resuscitation Anabel Saucedo DO Nov 14, 2016 09:28 Placido Ellis MD . Assessment & Plan 66 year old male with a history of coronary artery disease with prior RI and cardiac stents x4 (currently on plavix), HTN, HLD, GERD, and chronic pain with daily NSAID use who presented to the ED with the complaint of black stool for the past two days. Admitted for further evaluation and management of upper GI bleed. Symptomatic anemia secondary to acute Upper GI bleed in a patient with daily NSAID use. - H/H at presentation 9.7/30.6 and remains stable. Most recently 9.8/31.2 - No overt signs of bleeding post procedure - EGD today showed erosive gastropathy, gastric and duodenal ulcers RECOMMENDATIONS: - Starting tomorrow morning, switch to PO Protonix 40 mg BID for one month and then 20 mg daily as long as patient is on aspirin and/or Plavix. - Advanced diet as tolerated. - Risk benefit for aspirin and Plavix should be assessed. However if patient needs aspirin and Plavix, continue aspirin and Plavix per cardiology. However there is increased risk of bleeding under the circumstances. -GERD behavioral modification: - Avoid fatty, acidic, spicy, large meals - Do not lie down after meals - Do not eat or drink anything for at least 2 1/2 hours before going to bed at night - Discontinue tobacco and alcohol - Decrease or avoid caffeine - Avoid chocolate and mints - Decrease weight - Avoid aspirin and non steroidal anti-inflammatory agents (NSAID) such as Aleve, Advil, Mobic, Naproxen, Ibuprofen, etc - Add proton pump inhibitor. Take 30 minutes before 1st meal of the day. - Patient informed of normal post procedure side effects as bloating, drowsiness , blood streaking in the stool - If gastric biopsy reveal H.pylori, continue with appropriate treatment - If small bowel biopsy reveals celiac, continue with appropriate treatment - Please don't hesitate to call me with any questions Additional problems managed by primary hospitalist: -Coronary artery disease -Hypertension, chronic -Hyperlipidemia VTE Mechanical Devices: Intermittant Pneumatic CD Resuscitation Status: CPR: Attempt Resuscitation Anabel Saucedo DO Nov 14, 2016 09:28
--- NOTE | 2016-11-14 11:33 | NUR ---
Discharge Pt d/c'd at 1115. Home via private vehicle. All discharge teaching and instructions done with pt at bedside. Tele d/c'd. IV d/c'd intact. No items in the safe or pharmacy. Pt upset because he was told he would be d/c'd at 0900. Pt was asked what time his ride would be here, pt said he would let RN know. Pt then cancelled ride because "someone" told him discharge would not be done for awhile. Discharge was done at 0900. field installer and primary RN talked with pt about discharge process. Pt's ride came to pick him up at the time best for them.
[2016-11-14] MEDS ORDERED: Pantoprazole 40 mg ER24 Tablet PO SCH (16:30)
--- NOTE | 2016-11-16 11:38 | PATH ---
SURGICAL PATHOLOGY Attending Physician:Placido Ellis M.D. CASE STATUS: Signed Out PATIENT NAME: BETZY ALCARAZ PID: [id number] : 1950 DATE COLLECTED:11/13/2016 00:00 SPECIMEN: 1: Gastric, Biopsy 2: Duodenum, Biopsy CLINICAL HISTORY: GASTROINTESTINAL BLEED 1). GASTRIC BIOPSY 2). DUODENUM BIOPSY FINAL DIAGNOSIS: 1. Stomach, Biopsy: Gastric antral mucosa with chronic gastritis and reactive epithelial changes consistent with adjacent erosion. Negative for Helicobacter organisms by immunohistochemistry. Negative for intestinal metaplasia, dysplasia, or malignancy. 2. Duodenum, Biopsy: Duodenal mucosa with foveolar metaplasia and mild active duodenitis. Negative for granulomata, dysplasia or malignancy. ICD10: K92.1 GROSS DESCRIPTION: The specimen is received in two formalin filled containers labeled with the patient's name. 1). The specimen is labeled "gastric" and consists of 2 portions of tissue which aggregate to 0.3 x 0.3 x 0.2 CM. The specimen is entirely submitted in cassette 1A. 2). The specimen is labeled "duodenum" and consists of a less than 0.1 CM portion of tissue which is entirely submitted in cassette 2A. 11/14/2016DC MICRO DESCRIPTION: Part 1: An immunohistochemical stain was performed to evaluate for Helicobacter organisms and is negative. A control stain showed appropriate reactivity. * This test was developed and its performance characteristics determined by [facility]. It has not been cleared or approved by the U.S. Food and Drug Administration. The FDA has determined that such clearance or approval is not necessary. This test is used for clinical purposes. It should not be regarded as investigational or for research. ICD-9 CODES: CPT CODES: 1: 34946, 40848 2: 48612 Electronically Signed Out Luther Rowan MD, Ph.D. [facility] [address], [place] [address] Technical component performed at [facility], [address], [place], [address]
== END 2016-11-14 11:18 | disposition home or self-care (01) | DRG 384 ==
LOC: SED 19:16 → OSC 11-13 00:40
PROVIDERS: ADMIT Hospitalist; ATTEND Hospitalist
PROC: 0DB98ZX Excision of Duodenum, Via Natural or Artificial Opening Endoscopic, Diagnostic (ICD-10-PCS; 2016-11-13)
PROC: 0DB68ZX Excision of Stomach, Via Natural or Artificial Opening Endoscopic, Diagnostic (ICD-10-PCS; principal; 2016-11-13 17:00)
DX: K25.9 Gastric ulcer, unspecified as acute or chronic, without hemorrhage or perforation (principal); K92.2 Gastrointestinal hemorrhage, unspecified; K26.9 Duodenal ulcer, unspecified as acute or chronic, without hemorrhage or perforation; I25.2 Old myocardial infarction; I25.10 Atherosclerotic heart disease of native coronary artery without angina pectoris; I10 Essential (primary) hypertension; E78.5 Hyperlipidemia, unspecified; Z79.02 Long term (current) use of antithrombotics/antiplatelets; Z79.82 Long term (current) use of aspirin; Z87.891 Personal history of nicotine dependence; G89.29 Other chronic pain; M54.9 Dorsalgia, unspecified; R10.30 Lower abdominal pain, unspecified; Z79.1 Long term (current) use of non-steroidal anti-inflammatories (NSAID); D50.0 Iron deficiency anemia secondary to blood loss (chronic)